=== PATIENT | female | born 1950 | race Caucasian/White ===

== ENCOUNTER → 2018-05-21 | Outpatient (CLI) | payer OTHER ==
[2018-05-21 06:41] LABS: POTASSIUM 3.8 mmol/L (3.5-5.1)
== END ==
LOC: M.LAB 04:32
PROVIDERS: Student in an Organized Health Care Education/Training Program
DX: Z01.812 Encounter for preprocedural laboratory examination (principal); E11.9 Type 2 diabetes mellitus without complications

== ENCOUNTER → 2020-01-10 | Outpatient (CLI) | payer MEDICARE, OTHER | LOC: M.LAB 14:54 | PROVIDERS: ATTEND Internal Medicine Gastroenterology | DX: Z01.812 Encounter for preprocedural laboratory examination (principal); Z11.59 Encounter for screening for other viral diseases; D50.9 Iron deficiency anemia, unspecified; Z15.09 Genetic susceptibility to other malignant neoplasm; Z86.010 Personal history of colon polyps ==

== ENCOUNTER → 2020-03-12 | Outpatient (CLI) | payer MEDICARE, OTHER ==
[~2020-03-12] MED LIST: EZETIMIBE10 MG PO; HYDROCHLOROTH12.5 M2 PO; JANUVIA 50 MG T50 MG PO; LISINOPRIL20 MG PO
== END ==
LOC: M.MRI 16:08
PROVIDERS: ATTEND Orthopaedic Surgery
DX: S83.242A Other tear of medial meniscus, current injury, left knee, initial encounter (principal); M17.12 Unilateral primary osteoarthritis, left knee; M22.42 Chondromalacia patellae, left knee; G89.29 Other chronic pain; X58.XXXA Exposure to other specified factors, initial encounter; Y93.89 Activity, other specified; Y92.89 Other specified places as the place of occurrence of the external cause; Y99.8 Other external cause status

== ENCOUNTER → 2020-04-03 | Outpatient (CLI) | payer MEDICARE, OTHER ==
[2020-04-03 11:10] LABS: ABSOLUTE EOSINOPHILS 0.2 thou/uL (0.0-0.7); ABSOLUTE LYMPHOCYTES 1.8 thou/uL (0.8-5.3); ABSOLUTE MONOCYTES 0.7 thou/uL (0.0-1.2); ABSOLUTE NEUTROPHILS 6.4 thou/uL (1.6-8.1); BASOPHILS 0.4 %; EOSINOPHILS 1.9 %; HEMATOCRIT 37.5 % (37.0-47.0); HEMOGLOBIN 12.3 gm/dL (12.0-15.0); LYMPHOCYTES 19.4 %; MCH 27.8 pg (26.0-34.0); MCHC 32.8 g/dL (28.0-37.0); MCV 84.9 fL (80.0-100.0); MONOCYTES 7.4 %; MPV 6.7 fl. (7.2-11.1); NUCLEATED RBCS 0 /100WBC; PLATELET COUNT* 221 thou/uL (150-400); POLYS 70.9 %; RBC 4.41 mil/uL (4.20-5.00); RDW-CV 13.6 % (10.5-14.5)
[2020-04-03 11:21] LABS: PROTIME 10.6 Seconds (9.20-11.50)
[2020-04-03 11:26] LABS: ALBUMIN 3.8 g/dL (3.4-5.0); CALCIUM 9.3 mg/dL (8.5-10.1); CREATININE 1.2 mg/dL (0.6-1.3); POTASSIUM 4.6 mmol/L (3.5-5.1); TOTAL BILIRUBIN 0.4 mg/dL (<0.1-1.0); TOTAL PROTEIN 8.3 g/dL (6.4-8.2)
[2020-04-03 12:10] LABS: ESR (SEDRATE) 48 mm/hr (0-30)
--- NOTE | 2020-04-03 13:29 | EKG ---
[place] [address] ELECTROCARDIOGRAM REPORT Name: OPALABHIJITJOSE Room: [facility]#: [id number] Admission: 04/03/20 Attend Phys: Lucien Storm DO Discharge: Date of : 50 Date of Service: 04/03/20 1148 Report #: [id number] THIS REPORT FOR: //name// [facility] Test Date: 2020-04-03 Test Time: 11:48:36 Pat Name: JOSE SALMON Department: Room: Gender: [employer]: : 1950 Requested By: Lucien Storm Order Number: [id number] Reading MD: Taras Feliz Measurements Intervals [place] Rate: 87 P: 59 WA: 158 QRS: 45 QRSD: 90 T: 63 QT: 393 QTc: 473 Interpretive Statements Sinus rhythm No previous ECG available for comparison Electronically Signed On 04-03-2020 13:28:51 COUNSELOR SUPERVISOR by Taras Feliz [email or web address] <ELECTRONICALLY SIGNED> By: Taras Feliz MD, [facility] 04/03/20 1328 1148 1148 Taras Feliz MD, FAC /EPI
[2020-04-04 02:06] LABS: GLYCOHEMOGLOBIN (HGB A1C) 8.2 % (4.8-5.6)
== END ==
LOC: M.LAB 10:44
PROVIDERS: ATTEND Orthopaedic Surgery
DX: Z01.812 Encounter for preprocedural laboratory examination (principal); Z20.828 Contact with and (suspected) exposure to other viral communicable diseases; M17.11 Unilateral primary osteoarthritis, right knee; I49.9 Cardiac arrhythmia, unspecified